=== PATIENT | male | born 1965 | race Caucasian/White ===

== ENCOUNTER 2018-06-09 07:47 | Outpatient (CLI) | payer OTHER ==
[2018-06-09 12:14] LABS: BASOPHILS % (AUTO) 0.4 %; EOSINOPHILS % (AUTO) 0.8 %; HGB - HEMOGLOBIN 14.4 g/dL (14.0-18.0); LYMPHOCYTES # (AUTO) 1.5 10^3/uL (1.5-3.5); LYMPHOCYTES % (AUTO) 26.4 %; MEAN CORPUSCULAR HEMOGLOBIN 30.7 pg (27.0-31.0); MEAN CORPUSCULAR HGB CONC 33.2 g/dL (32.0-36.0); MEAN CORPUSCULAR VOLUME 92.5 fL (80.0-94.0); MEAN PLATELET VOLUME 8.7 fL (7.4-11.4); MONOCYTES # (AUTO) 0.5 10^3/uL (0.0-1.0); MONOCYTES % (AUTO) 8.3 %; NEUTROPHILS # (AUTO) 3.5 10^3/uL (1.5-6.6); NEUTROPHILS % (AUTO) 64.1 %; PLT - PLATELET COUNT 260 10^3/uL (130-450); RED BLOOD COUNT 4.68 10^6/uL (4.70-6.10); RED CELL DISTRIBUTION WIDTH 13.5 % (12.0-15.0); WHITE BLOOD COUNT 5.5 x10^3/uL (4.8-10.8)
[2018-06-09 12:34] LABS: ALBUMIN 3.8 g/dL (3.2-5.5); ALBUMIN/GLOBULIN RATIO 1.4 (1.0-2.2); ALKALINE PHOSPHATASE 47 IU/L (42-121); ALT ALANINE AMINOTRANSFERASE 15 IU/L (10-60); AST ASPARTATE AMINOTRANSFERASE 18 IU/L (10-42); BILIRUBIN,TOTAL 0.5 mg/dL (0.2-1.0); BUN - BLOOD UREA NITROGEN 16 mg/dL (6-20); CARBON DIOXIDE - CO2 27 mmol/L (21-32); CHLORIDE 108 mmol/L (101-111); CHOL/HDL RATIO 3.8 (<5.0); CHOLESTEROL 172 mg/dL; CREATININE 0.9 mg/dL (0.6-1.2); GFR - MDRD 88 (>89); GLUCOSE 94 mg/dL (70-100); HDL CHOLESTEROL 45 mg/dL; LDL CHOLESTEROL,CALCULATED 84 mg/dL; LDL/HDL RATIO 1.9 (<3.6); SODIUM 141 mmol/L (135-145); TOTAL PROTEIN 6.6 g/dL (6.7-8.2); VLDL CHOLESTEROL 43 mg/dL
== END 2018-06-09 07:48 | disposition home or self-care (01) ==
LOC: LAB.F 07:47
PROVIDERS: ATTEND Internal Medicine
DX: Z00.00 Encounter for general adult medical examination without abnormal findings (principal); Z12.5 Encounter for screening for malignant neoplasm of prostate
CPT/HCPCS: 36415; 80053; 80061; 83721; 84153; 84443; 85025

== ENCOUNTER 2020-10-10 20:43 | Outpatient (CLI) | payer OTHER | END 2020-10-10 23:59 | disposition short-term general hospital (02) | LOC: EMS 20:43 | PROVIDERS: ATTEND Surgery | DX: R27.8 Other lack of coordination (principal); R47.9 Unspecified speech disturbances; R53.1 Weakness; R47.81 Slurred speech | CPT/HCPCS: A0425; A0427 ==

== ENCOUNTER 2021-02-21 16:31 | Outpatient (CLI) | payer OTHER ==
[2021-02-21 19:54] LABS: BASOPHILS % (AUTO) 0.3 %; EOSINOPHILS % (AUTO) 0.5 %; HCT - HEMATOCRIT 43.6 % (42.0-52.0); HGB - HEMOGLOBIN 13.8 g/dL (14.0-18.0); LYMPHOCYTES # (AUTO) 1.9 10^3/uL (1.5-3.5); LYMPHOCYTES % (AUTO) 28.6 %; MEAN CORPUSCULAR HEMOGLOBIN 29.5 pg (27.0-31.0); MEAN CORPUSCULAR HGB CONC 31.7 g/dL (32.0-36.0); MEAN CORPUSCULAR VOLUME 93.2 fL (80.0-94.0); MEAN PLATELET VOLUME 11.1 fL (7.4-11.4); MONOCYTES # (AUTO) 0.5 10^3/uL (0.0-1.0); MONOCYTES % (AUTO) 7.3 %; NEUTROPHILS # (AUTO) 4.1 10^3/uL (1.5-6.6); NEUTROPHILS % (AUTO) 63.1 %; PLT - PLATELET COUNT 264 10^3/uL (130-450); RED BLOOD COUNT 4.68 10^6/uL (4.70-6.10); WHITE BLOOD COUNT 6.5 x10^3/uL (4.8-10.8)
[2021-02-21 20:01] LABS: POTASSIUM 3.7 mmol/L (3.5-5.0)
== END 2021-02-21 16:32 | disposition home or self-care (01) ==
LOC: LAB.S 16:31
PROVIDERS: ATTEND Physician Assistant
DX: Z01.812 Encounter for preprocedural laboratory examination (principal); Q21.1 Atrial septal defect; I63.9 Cerebral infarction, unspecified
CPT/HCPCS: 36415; 80048; 82565; 84132; 85025

== ENCOUNTER 2021-03-16 12:48 | Day surgery (SDC) | payer OTHER ==
[2021-03-16] MEDS ORDERED: LACTATED RINGERS 1,000 ML IV ONE ×2 (13:26→15:51)
[2021-03-16] MEDS ORDERED: fentaNYL 250 MCG/5 ML VIAL ONE (14:52)
[2021-03-16] MEDS ORDERED: MIDAZOLAM 2 MG/2 ML VIAL ONE ×4 (14:52→15:20)
[2021-03-16 16:12] VITALS: BP 132/84
== END 2021-03-16 12:49 | disposition home or self-care (01) ==
LOC: SDS 12:48
PROVIDERS: ATTEND Surgery
PROC: 0DBN8ZX Excision of Sigmoid Colon, Via Natural or Artificial Opening Endoscopic, Diagnostic (ICD-10-PCS; 2021-03-16)
PROC: 0DBK8ZX Excision of Ascending Colon, Via Natural or Artificial Opening Endoscopic, Diagnostic (ICD-10-PCS; principal; 2021-03-16 13:45)
DX: Z12.11 Encounter for screening for malignant neoplasm of colon (principal); D12.2 Benign neoplasm of ascending colon; D12.5 Benign neoplasm of sigmoid colon; K57.30 Diverticulosis of large intestine without perforation or abscess without bleeding; Z86.73 Personal history of transient ischemic attack (TIA), and cerebral infarction without residual deficits; Z79.82 Long term (current) use of aspirin; N40.0 Benign prostatic hyperplasia without lower urinary tract symptoms; Z87.891 Personal history of nicotine dependence
CPT/HCPCS: 45380; J3010; J7120

== ENCOUNTER 2021-12-20 08:09 | Outpatient (CLI) | payer OTHER ==
[2021-12-20 14:53] LABS: BASOPHILS % (AUTO) 0.5 %; EOSINOPHILS # (AUTO) 0.1 10^3/uL (0.0-0.7); EOSINOPHILS % (AUTO) 0.9 %; HGB - HEMOGLOBIN 14.2 g/dL (14.0-18.0); LYMPHOCYTES # (AUTO) 1.6 10^3/uL (1.5-3.5); LYMPHOCYTES % (AUTO) 27.4 %; MEAN CORPUSCULAR HEMOGLOBIN 30.7 pg (27.0-31.0); MEAN CORPUSCULAR HGB CONC 32.3 g/dL (32.0-36.0); MEAN PLATELET VOLUME 10.3 fL (7.4-11.4); MONOCYTES # (AUTO) 0.5 10^3/uL (0.0-1.0); MONOCYTES % (AUTO) 9.4 %; NEUTROPHILS # (AUTO) 3.5 10^3/uL (1.5-6.6); NEUTROPHILS % (AUTO) 61.6 %; PLT - PLATELET COUNT 250 10^3/uL (130-450); RED BLOOD COUNT 4.63 10^6/uL (4.70-6.10); RED CELL DISTRIBUTION WIDTH 13.3 % (12.0-15.0); WHITE BLOOD COUNT 5.7 x10^3/uL (4.8-10.8)
[2021-12-20 15:54] LABS: ALBUMIN/GLOBULIN RATIO 1.5 (1.0-2.2); ALKALINE PHOSPHATASE 52 IU/L (42-121); ALT ALANINE AMINOTRANSFERASE 15 IU/L (10-60); AST ASPARTATE AMINOTRANSFERASE 15 IU/L (10-42); BUN - BLOOD UREA NITROGEN 17 mg/dL (6-20); CARBON DIOXIDE - CO2 29 mmol/L (21-32); CHLORIDE 104 mmol/L (101-111); CHOL/HDL RATIO 3.1 (<5.0); CHOLESTEROL 116 mg/dL; CREATININE 0.9 mg/dL (0.6-1.2); GFR - MDRD 87 (>89); GLUCOSE 107 mg/dL (70-100); HDL CHOLESTEROL 38 mg/dL; LDL CHOLESTEROL,CALCULATED 66 mg/dL; LDL/HDL RATIO 1.7 (<3.6); POTASSIUM 4.1 mmol/L (3.5-5.0); SODIUM 140 mmol/L (135-145); TOTAL PROTEIN 6.6 g/dL (6.7-8.2); TRIGLYCERIDES 62 mg/dL; VLDL CHOLESTEROL 12 mg/dL
[2021-12-20 15:56] LABS: THYROID STIMULATING HORMONE 2.72 uIU/mL (0.34-5.60)
== END 2021-12-20 08:10 | disposition home or self-care (01) ==
LOC: LAB.S 08:09
PROVIDERS: ATTEND Registered Nurse
DX: E78.5 Hyperlipidemia, unspecified (principal); I63.9 Cerebral infarction, unspecified; Z79.899 Other long term (current) drug therapy; R97.20 Elevated prostate specific antigen [PSA]
CPT/HCPCS: 36415; 80053; 80061; 83721; 84153; 84443; 85025

== ENCOUNTER 2022-01-01 08:00 | Outpatient (CLI) | payer OTHER ==
--- NOTE | 2022-01-02 09:56 | XRAY Report ---
PROCEDURE: Finger(s) RT INDICATIONS: RIGHT THUMB PAIN TECHNIQUE: AP hand, 2 views of the first finger(s) acquired. COMPARISON: None. FINDINGS: Bones: Possible nondisplaced fracture at the base of the first distal phalanx. No suspicious bony le sions. Soft tissues: No suspicious soft tissue calcifications. IMPRESSION: 1. Stable nondisplaced fracture at the base of the first distal phalanx. Please correlate with focal pain and tenderness. If clinically indicated, a follow-up exam is recommended in 7-10 days. 2. Mild degenerative joint disease at the first carpometacarpal joint and interphalangeal joint. Reviewed by: Freddy Hoyos MD on 01/02/2022 9:55 AM PST Approved by: Freddy Hoyos MD on 01/02/2022 9:55 AM PST Station ID: [id number]
== END 2022-01-01 23:59 | disposition home or self-care (01) ==
LOC: DI.S 08:00
PROVIDERS: ATTEND Physician Assistant
DX: S62.514A Nondisplaced fracture of proximal phalanx of right thumb, initial encounter for closed fracture (principal)